=== PATIENT | female | born 1975 | race Caucasian/White ===

== ENCOUNTER 2023-02-23 09:23 | Day surgery (SDC) | payer OTHER ==
[~2023-02-23] VITALS: Ht 149.9 cm; Wt 62.6 kg
[2023-02-23 11:14] LABS: HCG,QUAL RESULT NEGATIVE (NEGATIVE)
[2023-02-23] MEDS ORDERED: fentaNYL CITRATE/PF 100 MCG/2 ML AMP ONE (12:03)
[2023-02-23] MEDS ORDERED: KETOROLAC TROMETHAMINE 30 MG VIAL ONE (12:03)
[2023-02-23] MEDS ORDERED: METOCLOPRAMIDE HCL 10 MG/2 ML VIAL ONE (12:03)
[2023-02-23] MEDS ORDERED: NS IRRIG SOLN 1000 ML IR ONE (12:03)
[2023-02-23] MEDS ORDERED: ONDANSETRON HCL 4 MG/2 ML VIAL ONE (12:03)
[2023-02-23] MEDS ORDERED: PROPOFOL 200MG/ 20ML VIAL (DIPRIVAN) IV ONE (12:03)
[2023-02-23] MEDS ORDERED: SEVOFLURANE 15 MIN GAS INH ONE (12:03)
[2023-02-23] MEDS ORDERED: LR 1,000 ML IV.SOLN IV ONE (12:03)
[2023-02-23 17:14] VITALS: BP_SYST 113
== END 2023-02-23 17:05 | disposition home or self-care (01) ==
LOC: SDS 09:23 → SMU 09:30 → SDS 17:05
PROVIDERS: ATTEND Obstetrics & Gynecology
DX: T83.31XA Breakdown (mechanical) of intrauterine contraceptive device, initial encounter (principal); Z20.822 Contact with and (suspected) exposure to COVID-19; Y82.8 Other medical devices associated with adverse incidents
CPT/HCPCS: 87081; 58558; 84703; 36415; 88305; 87426; J1885; J2765; J2405; J2704; J3010; J7120